=== PATIENT | female | born 1990 | race Caucasian/White ===

== ENCOUNTER 2018-11-14 10:00 | Observation (INO) | payer OTHER ==
[~2018-11-14] VITALS: Ht 172.7 cm; Wt 84.8 kg
[2018-11-14] MEDS ORDERED: SYNTHROID75 MCG PO (10:20)
[2018-11-14] MEDS ORDERED: ANGELIQ 0.25 M1 EACH PO (10:20)
[2018-11-14] MEDS ORDERED: HYDROXYZINE HCL50 MG PO (10:21)
[2018-11-14] MEDS ORDERED: LEXAPRO10 MG PO (10:21)
--- OUTSIDE RECORDS SUMMARY | 2018-11-14 11:32 | XMS ---
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 E.D. VISIT COUNT (12 MO.) 1 [facility] 1 [facility] [place] TOTAL 2 NOTE: Visits indicate total known visits. ED/UCC VISIT TRACKING (12 MO.) 11/14/2018 10:00 [facility] [place] TYPE: Emergency COMPLAINT: - ABD PAIN 11/09/2018 20:38 [facility] [place] TYPE: Emergency DIAGNOSES: - Right upper quadrant pain - ABD PAIN VOMITING DIARRHEA - Unspecified abdominal pain - Nausea with vomiting, unspecified INPATIENT VISIT TRACKING (12 MO.) 11/14/2018 10:01 [facility] [place] TYPE: Medical Surgical COMPLAINT: - CHOLECYSTECTOMY 11/09/2018 20:38 [facility] OR TYPE: Medical Surgical DIAGNOSES: - Right upper quadrant pain - Nausea with vomiting, unspecified [email or web address]
--- NOTE | 2018-11-14 14:46 | NUR ---
11/14/18 Alberto6 Anna Carl 1421- PT ARRIVES TO PACU AWAKE AND TALKING WITH STAFF. PT IS DROWSY. RESP EVEN AND UNLABORED. PT REPORTS PAIN A 5/10, DENIES ANY NAUSEA. OXYGEN SAT HIGH 90'S TO 100% ON RA.
--- NOTE | 2018-11-14 15:05 | NUR ---
PT ARRIVED FROM PACU. PT TRANSFERES SELF TO BED. REPORTING 6/10 PAIN (SEE MAR) FOR MEDICATION GIVEN. PT DENIES NAUSEA. ASSESSMENT DONE. DRESSINGS CDI AT THIS TIME. CONTINIOUS PULSE OX ON. SCD'S ON. PT TOLERATING SIPS OF WATER. COFFEE PROVIDED PER PT REQUEST. FAMILY AT BEDSIDE. CALL LIGHT WITHIN REACH. NO ADDITIONAL REQUESTS OR COMPLAINTS.
--- NOTE | 2018-11-14 16:22 | NUR ---
VITALS AND ASSESSMENT DUE. THIS RN TO BEDSIDE. PT ASSISTED UP TO RESTROOM. VOIDS 150ML WITHOUT ISSUE. PT ON MENSES. RADHA PAD PROVIDED. PT BACK TO BED. ASSESSMENT DONE. DRESSING CDI. PT REPORTS 5/10 PAIN "WHEN I MOVE." PULSE OX, SCD'S IN PLACE. PT DENIES NAUSEA. BED RAILSUP. CALL LIGHT WITHIN REACH.
--- NOTE | 2018-11-14 16:27 | NUR ---
THIS RN SPOKE WITH MD ABOUT PO PAIN MEDICATIONS AND PTS PAIN LEVEL. MD STATES HE WILL PLACE NEW ORDERS FOR PAIN MEDICATIONS.
--- NOTE | 2018-11-14 16:35 | CONS ---
[facility] [address], [place] [address] Signed DATE OF CONSULTATION: 11/14/2018 CHIEF COMPLAINT: Right upper quadrant abdominal pain. HISTORY OF PRESENT ILLNESS: Adeola is a 28-year-old female who over the last 6 days if not a little longer has been having trouble with right upper quadrant abdominal pain, nausea, and vomiting. She has had a previous lap band done a number of years ago. She dropped from 408 pounds down to 180 pounds. Unfortunately, she had gained a lot of weight when she was treated for her Hodgkin lymphoma back in 2004. She has also been through an abdominoplasty now that she has lost her weight. 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 She had been over to [facility] and found a normal white count and a normal CT and normal ultrasound of the right upper quadrant. However, she had a HIDA scan performed and her gallbladder ejection fraction was only 1% and it reproduced her symptoms when she drank the Ensure. Unfortunately, she had been discharged home from [facility] and asked to follow up with her PCP and/or the local surgeon. Her symptoms have continued, so she came over to [facility]. She continues to have pain in the right upper quadrant. Consequently, I was asked to see her as a general surgeon on-call. PAST MEDICAL HISTORY: Obesity, from 408 pounds down to 180 pounds, Hodgkin lymphoma in 2004, anxiety, depression, hypothyroidism. PAST SURGICAL HISTORY: Laparoscopic band, tonsillectomy and adenoidectomy, x1, abdominoplasty, and Gilberto-catheter removal. SOCIAL HISTORY: She does not smoke or drink. She is to Chance, at [phone]. They have 3 children. She has a shutdown planner for the [employer]. However, her primary care provider is through the [facility]. FAMILY HISTORY: Her dad had hypertension, obesity, and diabetes. Mom had Pseudotumor cerebri and mitral valve prolapse. REVIEW OF SYSTEMS: She had 10 systems reviewed and all the pertinent positives are included above. ALLERGIES: Flu vaccine and Percocet. Tramadol and Dilaudid are okay. Electronically Signed By: APOORVA WILEY MD 11/14/18 1635 PATIENT NAME: ADEOLA CANO CONSULTATION DATE OF : 86 REPORT #: [id number] PHYSICIAN: APOORVA WILEY MD PCP: OTHER PCP REPORT IS CONFIDENTIAL AND NOT TO BE RELEASED WITHOUT AUTHORIZATION [facility] [address], [place] [address] Signed MEDICATIONS: 1. Levothyroxine 75 mcg p.o. daily. 2. Oral contraceptive pill. 3. Lexapro. 4. Hydroxyzine. PHYSICAL EXAMINATION: VITAL SIGNS: Her blood pressure is 121/68, heart rate 65, respiratory rate 16, temperature is 98.2. She is 100% on room air. She is 5 feet 8 inches and 84 kg. GENERAL: Adeola is a 28-year-old female, lying supine semi-recumbent in her ER bed. Her is in the room. Her nurse is with us also. She seems to be having abdominal pain, but is not systemically ill or toxic. She is not jaundiced. LUNGS: Clear to auscultation bilaterally. HEART: Regular rate and rhythm. ABDOMEN: Soft, flat, but slightly tender in the right upper quadrant even after Dilaudid. LABORATORY DATA: Her white blood count 7, hemoglobin 15. BUN 9, creatinine 0.9, total bilirubin 0.3, AST 12, ALT 13, alkaline phosphatase 95, albumin is 4.3, amylase 72, glucose 93. Beta-hCG negative. Urine showed some blood, but she is on her menses because her control pills have been interrupted. RADIOGRAPHIC STUDIES: Ultrasound of the right upper quadrant, CT scan of the abdomen and pelvis, and HIDA scan are reviewed from [facility]. Ultrasound and CT scan are negative. HIDA scan shows gallbladder ejection fraction at 1% with pain with her symptoms reproduced after and drinking the Ensure. ASSESSMENT/PLAN: Adeola is a 28-year-old female who presents with ongoing chronic cholecystitis and significant biliary colic. We have given her some IV fluids here along with some pain medication. I have reviewed with Adeola the location and function of the gallbladder. We have discussed laparoscopic versus open appendectomy. We have discussed the expected intraop and postop course. We also reviewed the risks of surgery including, but not limited to bleeding, infection, scarring, change in contour the skin, damage to bowel, damage to main bile duct, incisional hernias, and other unforeseen comorbidities. She and her have expressed understanding and would like to proceed today. Apoorva Wiley MD Electronically Signed By: APOORVA WILEY MD 11/14/18 9312 PATIENT NAME: ADEOLA CANO CONSULTATION DATE OF : 86 REPORT #: [id number] PHYSICIAN: APOORVA WILEY MD PCP: OTHER PCP REPORT IS CONFIDENTIAL AND NOT TO BE RELEASED WITHOUT AUTHORIZATION [facility] [address] [address] Signed ALB/MODL /[id number] cc: Apoorva Wiley MD [facility] [employer] Copies: APOORVA WILEY MD ~ Electronically Signed By: APOORVA WILEY MD 11/14/18 1635 PATIENT NAME: ADEOLA CANO CONSULTATION DATE OF : 86 REPORT #: [id number] PHYSICIAN: APOORVA WILEY MD PCP: OTHER PCP REPORT IS CONFIDENTIAL AND NOT TO BE RELEASED WITHOUT AUTHORIZATION
--- NOTE | 2018-11-14 17:09 | NUR ---
VITALS AND ASSESSMENT DUE. THIS RN TO BEDSIDE. PT REPORTS IMPROVED PAIN NOW AT 01/22. PT REQUESTS JELLO, PROVIDED REQUESTED. ASSESSMENT DONE. VITALS TAKEN. DRESSINGS REMAIN CDI. ICE PACK IN PLACE. PT DENIES NAUSEA. WARM BLANKET PROVIDED. NO ADDITIONAL REQUESTS OR COMPLAINTS. BED RAILS UP. CALL LIGHT WITHIN REACH. AT BEDSIDE.
--- NOTE | 2018-11-14 18:25 | NUR ---
VITALS AND ASSESSMENT DUE. THIS RN TO BEDSIDE. PT REPORTS 7/10 PAIN. PT TRYING SMALL SNACKS AND NOW REPORTS NAUSEA. SEE MAR FOR MEDICATIONS GIVEN. VITALS TAKEN. ASSESSMENT DONE. DRESSINGS CDI. ICE PACK REFILLED. WARM BLANKETS PROVIDED. PT DENIES ADDITIONAL REQUESTS OR COMPLAINTS. BED RAILS UP. CALL LIGHT WITHIN REACH.
--- NOTE | 2018-11-14 18:56 | NUR ---
PT POST OP DAY ZERO FOR LAP AALIYAH. SBA. ZOFRAN GIVEN X1 THIS SHIFT FOR NAUSEA. IV DILAUDID GIVEN X1, AND PO DILAUDID X1 THIS SHIFT FOR 7/10 PAIN IN ABDOMEN. PT TOLERATING SMALL BITES OF REGULAR DIET WITH NO EMESIS THIS SHIFT. LAP SITES X4 WITH SUTURES, GAUZE AND TAPE IN PLACE, DRESSINGS CDI THIS SHIFT. PT VOIDING QUANTITY SUFFICIENT. PT USING CALL LIGHT APPROPRIATLY.
--- NOTE | 2018-11-14 19:00 | NUR ---
RECEIVED REPORT FROM DAY SHIFT RN. PATIENT IS RESTING IN BED WATCHING TV. PATIENT DENIES ANY NEEDS AT THIS TIME. CALL LIGHT IN REACH.
--- NOTE | 2018-11-14 21:10 | NUR ---
PATIENT ASSESEMENT COMPLETED. PATIENT REFUSED HEPARIN. PATIENT REFUSED. PATIENT EDUCATED ON MEDICATION. PATIENT VERBALIZED UNDERSTANDING. PATIENTS VITALS TAKEN AND RECORDED. PATIENTS INTAKE AND OUPUT RECORDED. PATIENTS DRESSING IS C/D/I, NO DRAINAGE NOTED. PATIENT DENIES ANY NEEDS. CALL LIGHT IN REACH.
--- NOTE | 2018-11-14 22:15 | NUR ---
PATIENT RATES PAIN IN HER ABD AT AN 8/10. PATIENT GIVEN PRN PAIN MEDICATION. FRESH ICE PACK PROVIDED. NO FURTHER NEEDS NOTED. CALL LIGHT IN REACH.
--- NOTE | 2018-11-15 00:11 | NUR ---
PATIENT IS RESTING IN BED ON PHONE. PATIENT RATES PAIN AT A 4/10. PATIENT STATED "THE DILAUDID HAS KICKED IN". NO NEEDS NOTED. CALL LIGHT IN REACH.
--- NOTE | 2018-11-15 02:20 | NUR ---
PATIENTS VITALS TAKEN AND RECORDED. PATIENT RATES PAIN AT A 5/10. PATIENT GIVEN PRN PAIN MEDICATION PER ORDER. ASSESMENT COMPLETED. PATIENT OFFERED A SNACK. PATIENT DENIED. PATIENT DENIES ANY FURTHER NEEDS. CALL LIGHT IN REACH.
--- NOTE | 2018-11-15 03:40 | NUR ---
PATIENT GIVEN PRN ZOFRAN PER PATIENT REQUEST FOR NAUSEA. PATIENT IS RESTING IN BED RESTING. PATIENT DENIES ANY FURTHER NEEDS AT THIS TIME. CALL LIGHT IN REACH.
--- NOTE | 2018-11-15 05:48 | NUR ---
PATIENT RESTED ON AND OFF THROUGHOUT THE SHIFT. PATIENT IS ON A REGULAR DIET. PATIENT IS ALSO ON A LAP BAND DIET THAT SHE FOLLOWS. PATIENT RECEIVED PRN PAIN MEDICATION X2 FOR ABD PAIN. PATIEN HAD X1 EPISODE OF NAUSE NO EMESIS NOTED. PATIENT RECEIVE PRN NAUSEA MEDICATION X1. PATIENT IS ON RA. PATIENT HAS SCDS IN PLACE. PATIENT HAS PULSE OX IN PLACE. PATIENT IS AAOX3 AND USES CALL LIGHT APPROPRIATELY. X4 LAP SITES COVERED WITH GAUZE AND TAPE. NO DRAINAGE NOTED.
--- NOTE | 2018-11-15 06:21 | NUR ---
PATIENTS VITALS TAKEN AND RECORDED. PATIENT RATES PAIN AT AN 8/10. PATIENT GIVEN PRN PAIN MEDICATION PER ORDER. PATIENT DENIES ANY NAUSEA. NO FURTHER NEEDS. CALL LIGHT IN REACH.
--- NOTE | 2018-11-15 06:43 | OR ---
[facility] [address], [place] [address] Signed DATE OF OPERATION: 11/14/2018 SURGEON: Apoorva Wiley MD PREOPERATIVE DIAGNOSES: 1. Chronic cholecystitis. 2. Biliary colic. POSTOPERATIVE DIAGNOSES: 1. Chronic cholecystitis. 2. Biliary colic. 3. Cholesterolosis. PROCEDURE: Laparoscopic cholecystectomy with intraoperative cholangiogram. ESTIMATED BLOOD LOSS: None. FINDINGS: The intraoperative cholangiogram was unremarkable. No evidence for any stones in the bile ducts or the gallbladder. However, she did have significant cholesterolosis. INDICATIONS: Adeola is a 28-year-old lady who went through chemotherapy and steroids for her Hodgkin lymphoma back in 2004. She went from 180 pounds up to 408 pounds. Consequently, she had a laparoscopic band placed and she is now back down to 180 pounds and she is scaphoid across the abdomen. In fact, she had to go undergo a formal abdominoplasty to imbricate midline of the abdomen and excise the redundant skin. She has been having trouble at least a week if not more with right upper quadrant abdominal pain with nausea, vomiting, and diarrhea. She said this is completely different than anything she has experienced before. She does not relate it to her gastric pain. She just had Dr. Martinez over the [facility] check her gastric band earlier this year and it was fine. She had been to [facility] and had a negative ultrasound of the right upper quadrant along with negative CT scan. She had a HIDA scan performed and a gallbladder ejection fraction was extremely low at 1% and drinking the Ensure reproduced her symptoms. She had been discharged whom I asked to follow up with her PCP and our local surgeon. She continued to have significant pain, so she decided to come over to [facility] in [place], [place] to our local emergency room. I was called as a general surgeon on-call today to see her in the emergency room. I met with Adeola Electronically Signed By: APOORVA WILEY MD 11/15/18 0643 PATIENT NAME: ADEOLA CANO OPERATIVE REPORT DATE OF : 86 REPORT #: [id number] PHYSICIAN: APOORVA WILEY MD PCP: OTHER PCP REPORT IS CONFIDENTIAL AND NOT TO BE RELEASED WITHOUT AUTHORIZATION [facility] [address] [place] [id number] Signed and her and we had a long discussion regarding her current situation and findings. We reviewed the location and function of the gallbladder. We reviewed laparoscopic versus open cholecystectomy. She understands the expected intraop and postop course. There is risk of surgery including, but not limited to bleeding, infection, scarring, change in contour of the skin, damage to bowel, damage to main bile duct, incisional hernias, and other unforeseen comorbidities. She had expressed understanding and wished to proceed. PROCEDURE NOTE: Adeola was taken from our emergency room directly into the operating room. She was given preoperative antibiotics along with subcutaneous heparin. SCDs were utilized. She was taken into the operating room and placed in the supine position under general endotracheal tube anesthesia. She was then prepped and draped in the usual sterile fashion. Adeola's umbilicus raised a bit high on the abdominal wall, so we made a standard infraumbilical midline incision and placed a Corin trocar just slightly off to the left of the midline to avoid her abdominoplasty scar. That worked out quite nicely. The abdomen was then insufflated and the remaining trocars were placed under direct visualization without difficulty. We could easily feel the port in her abdominal wall just above the umbilicus and off to her left side. Of course, we could see the catheter from the port going down underneath the left lobe of her liver. It is quite unremarkable without any adhesions and so forth. Her liver is very healthy. She has a little bit of fat in the liver, but otherwise quite nice. She has good color and the liver is quite supple. Her gallbladder was distended and projecting into the right upper quadrant exactly in the same place as found on physical exam. The gallbladder was then elevated into the right upper quadrant. We dissected out the triangle of Calot. We placed a clip across the cystic artery and it was divided. Intraoperative cholangiocatheter was inserted into the cystic duct. The intraoperative cholangiogram was performed and found to be unremarkable. No filling defects and the contrast flowed readily into the duodenum. The cystic duct stump was secured with PDS Endoloop and 2 clips were placed across the cystic duct stump to jose manuel its location. Gallbladder was then carefully removed from the gallbladder fossa with the help of the cautery and placed into an EndoCatch bag. The right upper quadrant was irrigated and suctioned out until clear. We then used our laparoscopic suturing device to pass 0 Vicryl suture on either side of the fascia of the subxiphoid trocar site. This was tied down to close this fascia primarily. After this, all the gas was allowed to escape and the trocars were removed along with the gallbladder. The gallbladder was opened on the back table by our circulating nurse. It did show moderately significant cholesterolosis. We then closed the infraumbilical trocar site with interrupted simple and [id number] 0 Vicryl sutures. Local anesthetic was copiously injected into all trocar sites. Each trocar site was irrigated and suctioned out until clear. The skin and dermis were closed with interrupted 3-0 subcuticular Monocryl sutures. Steri-Strips and dry gauze and tape were applied to all incisions. Adeola was then awakened from anesthesia, Electronically Signed By: APOORVA WILEY MD 11/15/18 0643 PATIENT NAME: ADEOLA CANO OPERATIVE REPORT DATE OF : 86 REPORT #: [id number] PHYSICIAN: APOORVA WILEY MD PCP: OTHER PCP REPORT IS CONFIDENTIAL AND NOT TO BE RELEASED WITHOUT AUTHORIZATION [facility] [address] [place] [id number] Signed extubated in the OR, and taken to the recovery room in stable condition. Apoorva Wiley MD ALB/MODL /[id number] cc: Apoorva Wiley MD [facility] Copies: APOORVA WILEY MD ~ Electronically Signed By: APOORVA WILEY MD 11/15/18 0643 PATIENT NAME: ADEOLA CANO OPERATIVE REPORT DATE OF : 86 REPORT #: [id number] PHYSICIAN: APOORVA WILEY MD PCP: OTHER PCP REPORT IS CONFIDENTIAL AND NOT TO BE RELEASED WITHOUT AUTHORIZATION
--- NOTE | 2018-11-15 07:15 | NUR ---
REPORT RECEIVED FROM DARLENE, RNS. PT VISITING WITH DR. TEJEDA. ANTICIPATED DISCHARGE THIS AM. REPORTS 4/10 PAIN THAT IS TOLERABLE AND "JUST A LITTLE NAUSEA." PT PLANS TO ORDER BREAKFAST AND "SLOWLY PICK AT IT." BED RAILS UP. CALL LIGHT WITHIN REACH. AT BEDSIDE.
[2018-11-15] MEDS ORDERED: DILAUDID4 MG PO (09:01)
[2018-11-15] MEDS ORDERED: PROMETHAZINE HC25 M1 PO (09:04)
--- NOTE | 2018-11-15 09:13 | NUR ---
PATIENT IN BED EATING BREAKFAST, FAMILY BEDSIDE. CALL LIGHT IN REACH. NO FURTHER NEEDS AT THIS TIME.
--- NOTE | 2018-11-15 09:26 | NUR ---
MORNING ASSESSMENT AND MEDICATION DUE. THIS RN TO BEDSIDE. PT REPORTS 4/10 PAIN THAT "IS GETTING BETTER." PT REPORTS "JUST A LITTLE NAUSEA." ASSESSMENT DONE. MD REMOVED GAUZE THIS AM, STERI STRIPS IN PLACE, EDGES APROXIMATED, NO DRAINAGE NOTED. PT REFUSES HEPARIN AND STATES SHE UNDERSTANDS THE RISKS AND "I'LL JUST KEEP MOVING." PT EATING BREAKFAST, NO ADDITIONAL REQUESTS OR COMPLAINTS. BED RAILS UP. SCD'S IN PLACE. CALL LIGHT WITHIN REACH.
--- NOTE | 2018-11-15 10:35 | NUR ---
PT READY FOR DISCHARGE. THIS RN TO BEDSIDE. PT REPORST 05/24 PAIN AND STATES SHE WOULD LIKE TO TAKE BOTH PAIN MEDICATION AND NAUSEA MEDICATION BEFORE GOING HOME. SEE MAR FOR MEDICATIONS GIVEN. VITALS TAKEN. DISCHARGE INSTRUCTIONS REVIEWED WITH PT AND . PT AND VERBALIZE UNDERSTANDING AND STATE THEIR QUESTIONS HAVE BEEN ANSWERED. PHARACIST AT BEDSIDE FOR MEDICATION REVIEW. PT AND VERBALIZE UNDERSTANDING OF MEDICATIONS AND STATE ALL THEIR QUESTIONS HAVE BEEN ANSWERED. PIV DC'D PER PROTOCOL. PT UP WITH TO DRESS SELF. PT STEADY ON FEET.
--- NOTE | 2018-11-15 11:05 | NUR ---
PT CALL LIGHT ON. PT STATES SHE IS DRESSED AND READY FOR DISCHAGE. NEW ICE PACK PROVIDED. PT TRANSFERES SELF TO WHEEL CHAIR. DRAW END HAND WHEELING PT FROM UNIT. NO ADDITIONAL REQUESTS, COMPLAINTS, OR QUESTIONS.
--- NOTE | 2018-11-15 11:48 | DS ---
[facility] [address], [place] [address] Signed ADMISSION DATE: 11/14/2018 DISCHARGE DATE: 11/15/2018 FINAL DIAGNOSIS: Chronic cholecystitis with cholesterolosis. PROCEDURE PERFORMED: Laparoscopic cholecystectomy with intraoperative cholangiogram. HISTORY OF PRESENT ILLNESS: Adeola is a 28-year-old female who has been through Hodgkin lymphoma. She needed steroids during her chemotherapy. She went from 180 pounds up to 408 pounds. Consequently, she had a laparoscopic band performed and she is back down to 180 pounds. In the meantime, she developed significant right upper quadrant abdominal pain with nausea, vomiting, and diarrhea for at least a week if not longer. She had been to [facility] Emergency Room, ended up with a negative ultrasound of the right upper quadrant and negative CT scan. The HIDA scan showed her gallbladder ejection fraction low at 1% with reproduction of her pain while drinking the Ensure. She was discharged and asked to follow up with her PCP and a surgeon with respect to her findings. Her pain continues. She came to our emergency room at [facility] here 1 hour away. We went ahead and admitted her with the above findings. HOSPITAL COURSE: Adeola was admitted as above, given IV fluids, pain control, and some antibiotics. We took her into the operating room that same day and she underwent an uncomplicated laparoscopic cholecystectomy with a negative intraoperative cholangiogram. Afterward, she was having some nausea and required some antiemetics. In addition, she is allergic to Percocet and so we used IV and p.o. Dilaudid and that turned out to work out well. This morning, she looks and feels much better. She never eats a lot following her laparoscopic band. However, she is eating without the nausea and vomiting. Her pain is well controlled. She has been ambulating and doing well. Consequently, we are going to be discharging her to home. DISCHARGE PLANS AND MEDICATIONS: Adeola is going to be discharged to home with a prescription for the Dilaudid 4 mg tablets 1 to 2 tablets p.o. q.4 to 6 hours p.r.n. pain, dispense 30 tablets with no refills. We also wrote for Phenergan 25 mg one tablet p.o. q.6 hours p.r.n. for nausea and vomiting, dispense 10 tablets with one refill. She can always use ibuprofen and Tylenol for pain as well. She is going to continue to her just follow her regular diet following her laparoscopic band surgery. Her dressings are removed and the Steri-Strips remain in place. She will shower and bathe as usual. When the Steri-Strips are loose, she will Electronically Signed By: APOORVA WILEY MD 11/15/18 1148 PATIENT NAME: ADEOLA CANO DISCHARGE SUMMARY DATE OF : 86 REPORT #: [id number] PHYSICIAN: APOORVA WILEY MD PCP: OTHER PCP REPORT IS CONFIDENTIAL AND NOT TO BE RELEASED WITHOUT AUTHORIZATION [facility] [address], [place] [address] Signed remove those. She is welcome to walk up and down stairs, and shower and bathe as usual. She should not do any heavy pushing, pulling, or lifting over 25 pounds. We are going to see her in the office in 7 to 10 days for followup. She has expressed understanding and will proceed as above. I have discussed this with Adeola, her Chance, and our nurse Halle. Apoorva Wiley MD [facility]/MODL /[id number] cc: [facility] Apoorva Wiley MD Copies: APOORVA WILEY MD ~ Electronically Signed By: APOORVA WILEY MD 11/15/18 1148 PATIENT NAME: ADEOLA CANO DISCHARGE SUMMARY DATE OF : 86 REPORT #: [id number] PHYSICIAN: APOORVA WILEY MD PCP: OTHER PCP REPORT IS CONFIDENTIAL AND NOT TO BE RELEASED WITHOUT AUTHORIZATION
== END 2018-11-15 11:05 | disposition home or self-care (01) ==
LOC: ED 10:00 → MS 10:01
PROVIDERS: ADMIT Colon & Rectal Surgery
PROC: BF101ZZ Fluoroscopy of Bile Ducts using Low Osmolar Contrast (ICD-10-PCS; 2018-11-14)
PROC: 0FT44ZZ Resection of Gallbladder, Percutaneous Endoscopic Approach (ICD-10-PCS; principal; 2018-11-14 12:00)
DX: K81.1 Chronic cholecystitis (principal); E66.9 Obesity, unspecified; F41.9 Anxiety disorder, unspecified; F32.9 Major depressive disorder, single episode, unspecified; E03.9 Hypothyroidism, unspecified; Z98.84 Bariatric surgery status; Z85.71 Personal history of Hodgkin lymphoma; Z85.828 Personal history of other malignant neoplasm of skin; Z79.3 Long term (current) use of hormonal contraceptives; Z79.899 Other long term (current) drug therapy; Z88.5 Allergy status to narcotic agent; Z88.7 Allergy status to serum and vaccine; Z68.28 Body mass index [BMI] 28.0-28.9, adult
CPT/HCPCS: 00790; 74300; 80053; 81001; 82150; 83690; 84703; 85025; 88377; 94762; 96372; 96374; 96375; 99284-25; G0378; J0131; J0330; J0690; J1100; J1170; J1644; J1885; J2250; J2405; J2704; J3010; J3475; J7120; Q9967